=== PATIENT | female | born 1950 | race Caucasian/White ===

== ENCOUNTER 2017-02-27 18:17 | Inpatient (IN) | payer SELFPAY ==
[2017-02-27] MEDS ORDERED: Lidocaine 2% w Epi 1:100,000 Inj IJ ONE ×2 (18:28→18:35)
[2017-02-27] MEDS ORDERED: Morphine 4 MG/ML VIAL ONE ×2 (18:30→18:57)
[2017-02-27] MEDS ORDERED: Sodium Chloride 0.9% 1,000 ML IV ONE ×2 (18:33→18:34)
[2017-02-27 18:35] LABS: BASO # 0.1 K/uL (0.0-0.2); BASO % 0.7 % (0.0-2.0); EOS # 0.6 K/uL (0.0-0.7); EOS % 4.6 % (0.0-4.0); HEMATOCRIT 39.6 % (34.0-47.0); LYMPH # 6.4 K/uL (1.0-4.3); LYMPH % 49.7 % (20.0-40.0); MEAN CORPUSCULAR HEMOGLOBIN 26.7 pg (27.0-31.0); MEAN CORPUSCULAR HGB CONC 32.2 g/dL (33.0-37.0); MEAN PLATELET VOLUME 10.8 fL (7.2-11.7); MONO % 7.6 % (0.0-10.0); NRBC % 0.1 % (0.0-2.0); RED CELL DISTRIBUTION WIDTH 14.7 % (11.5-14.5); WHITE BLOOD COUNT 12.9 K/uL (4.8-10.8)
[2017-02-27 18:42] LABS: INR 0.9
[2017-02-27 18:44] LABS: ALKALINE PHOSPHATASE 89 U/L (38-126); ALT/SGPT 35 U/L (9-52); AST/SGOT 27 U/L (14-36); BILIRUBIN,TOTAL 0.3 mg/dL (0.2-1.3); BLOOD UREA NITROGEN 11 mg/dL (7-17); CALCIUM 8.8 mg/dl (8.6-10.4); CARBON DIOXIDE 23 mmol/L (22-30); CHLORIDE 101 mmol/L (98-107); GFR AFRICAN-AMERICAN > 60; GLUCOSE,RANDOM 95 mg/dL (65-105); POTASSIUM 3.3 mmol/L (3.6-5.2); SODIUM 136 mmol/L (132-148); TOTAL PROTEIN 8.9 g/dL (6.3-8.3)
[2017-02-27 18:54] LABS: ALB/GLOB RATIO 0.9 (1.0-2.1)
[2017-02-27] MEDS ORDERED: Sodium Chloride 0.9% 1,000 ML ONE (19:36)
--- NOTE | 2017-02-27 20:31 | C.PDOC ---
History Of Present Illness 66-year-old female with a pmhx of hypertension, presents to the ED after falling down approximately 10 steps. As per family at bedside, patient tripped on a rug and struck head. No loss of consciousness. Upon arrival patient with profuse bleeding from scalp hematoma. Hemostasis was achieved over 90 minutes. No other complaints. Not on any blood thinners. PMD: [facility] - [facility] Time Seen by Provider: 02/27/17 18:18 Chief Complaint (Nursing): Trauma History Per: Family History/Exam Limitations: no limitations Injury Occurred (Timing): Just Before Arrival - Fall Fall:Prior To Injury: Tripped Past Medical History Reviewed: Historical Data, Nursing Documentation, Vital Signs Vital Signs: Last Vital Signs Temp 98.3 F 03/01/17 08:00 Pulse 68 03/01/17 08:00 Resp 20 03/01/17 08:00 BP 138/66 03/01/17 08:00 Pulse Ox 99 03/01/17 08:00 - Medical History PMH: HTN Surgical History: No Surg Hx Family History: States: No Known Family Hx - Social History Hx Alcohol Use: No Hx Substance Use: No - Immunization History Hx Tetanus Toxoid Vaccination: No Hx Influenza Vaccination: No Hx Pneumococcal Vaccination: No Review Of Systems Except As Marked, All Systems Reviewed And Found Negative. Constitutional: Positive for: Other (Fall, head injury) Skin: Positive for: Other (Scalp hematoma, with active bleeding) Neurological: Negative for: Other (LOC) Physical Exam - Physical Exam Skin: Normal Color, Warm, Dry Head: Normacephalic, Laceration (5 cm laceration across forehead, with active bleeding upon arrival) ED Course And Treatment - Laboratory Results Result Diagrams: 02/28/17 01:15 02/28/17 06:24 O2 Sat by Pulse Oximetry: 94 - CT Scan/US CT Head Other Rad Studies (CT/US): Read By Radiologist, Radiology Report Reviewed CT/US Interpretation: FINDINGS: Brain: Concern for extra-axial hemorrhage along the falx. Atrophy. Bilateral white matter hypoattenuation most consistent with chronic ischemic. small vessel changes. Evaluation limited by motion artifact despite multiple. attempts to obtain images. No edema. Ventricles: No hydrocephalus. Bones: Skull appears intact. Soft tissues: Extensive scalp injury, predominantly right frontal. Correlate. clinically. Sinuses: No acute sinusitis. Mastoid air cells: No mastoid effusion. . IMPRESSION: Concern for extra-axial hemorrhage along the falx. Evaluation limited by motion artifact despite multiple attempts to obtain. images. Followup repeat imaging recommended. Extensive scalp injury, predominantly right frontal. Correlate clinically. CT Cervical Spine Other Rad Studies (CT/US): Read By Radiologist, Radiology Report Reviewed CT/US Interpretation: FINDINGS: Vertebrae: No acute fracture. Discs/spinal canal/neural foramina: Degenerative changes. No severe spinal. canal stenosis. Soft tissues: Left carotid calcification. Lung apices: No acute abnormality as visualized. Evaluation limited by motion artifact. . IMPRESSION: Evaluation limited by motion artifact. No evidence of acute fracture. Medical Decision Making Medical Decision Making: pt with initial large laceration to frontal scalp. with perfuse bleeding. bleeding vessels found and sutured. wound packed with surgicel and snow. pressure dressing applied with hemostatus obtained over 90 min Time: 18:22 Initial Plan: * Hemostasis achieved within 90 min * Blood type and screen * CMP * CBC * PTT * Prothrombin time * CT Head w/o contrast Time: 18:33 * Morphine 4 mg IV x2 * Sodium chloride 1000 ml at 1000 mls/hr * Zofran 4 mg IV Time: 20:02 * Tdap vaccine 0.5 ml IM * Cefazolin 1000 mg IVPB * Chest x-ray * CT Cervical Spine w/o contrast * X-Ray Pelvis 1 view Time: 20:22 * CT Chest/Abdomen/Pelvis w/ IV contrast ekg nsr [address] t wve change no previous. pt accepted to icu iwth intracanial bleed. dr quintana recommends repeat head ct am. Disposition - Disposition Disposition: HOSPITALIZED Disposition Time: 01:30 Condition: CRITICAL - Clinical Impression Clinical Impression: Intracranial bleed Critical Care Time - Critical Care Note Total Time (in mins): 120 Documented critical care: time excludes all time spent performing seperately billable procedures. - Scribe Statement The provider has reviewed the documentation as recorded by the Scribe Meche Yates All medical record entries made by the Scribe were at my direction and personally dictated by me. I have reviewed the chart and agree that the record accurately reflects my personal performance of the history, physical exam, medical decision making, and the department course for this patient. I have also personally directed, reviewed, and agree with the discharge instructions and disposition.
[2017-02-27] MEDS ORDERED: Iodixanol 320 MG/ML 100 ML BOTTLE IV ONE (20:47)
[2017-02-27] MEDS ORDERED: ceFAZolin 1 gm FROZEN Premix 1 GM/50 ML ML IVPB ONE (21:18)
--- NOTE | 2017-02-27 21:20 | CT ---
EXAM: CT Head Without Intravenous Contrast CLINICAL HISTORY: 66 years old, female; Injury or trauma; Fall; Initial encounter; Abrasion and bleeding / hemorrhage; Forehead and head, generalized TECHNIQUE: Axial computed tomography images of the head/brain without intravenous contrast. All CT scans at this facility use one or more dose reduction techniques, viz.: automated exposure control; ma/kV adjustment per patient size (including targeted exams where dose is matched to indication; i.e. head); or iterative reconstruction technique. Coronal and sagittal reformatted images were created and reviewed. COMPARISON: No relevant prior studies available. FINDINGS: Brain: Concern for extra-axial hemorrhage along the falx. Atrophy. Bilateral white matter hypoattenuation most consistent with chronic ischemic small vessel changes. Evaluation limited by motion artifact despite multiple attempts to obtain images. No edema. Ventricles: No hydrocephalus. Bones: Skull appears intact. Soft tissues: Extensive scalp injury, predominantly right frontal. Correlate clinically. Sinuses: No acute sinusitis. Mastoid air cells: No mastoid effusion. IMPRESSION: Concern for extra-axial hemorrhage along the falx. Evaluation limited by motion artifact despite multiple attempts to obtain images. Followup repeat imaging recommended. Extensive scalp injury, predominantly right frontal. Correlate clinically.
--- NOTE | 2017-02-27 21:23 | CT ---
EXAM: CT Cervical Spine Without Intravenous Contrast CLINICAL HISTORY: 66 years old, female; Injury or trauma; Fall; Initial encounter; Abrasion TECHNIQUE: Axial computed tomography images of the cervical spine without intravenous contrast. All CT scans at this facility use one or more dose reduction techniques, viz.: automated exposure control; ma/kV adjustment per patient size (including targeted exams where dose is matched to indication; i.e. head); or iterative reconstruction technique. Coronal and sagittal reformatted images were created and reviewed. COMPARISON: No relevant prior studies available. FINDINGS: Vertebrae: No acute fracture. Discs/spinal canal/neural foramina: Degenerative changes. No severe spinal canal stenosis. Soft tissues: Left carotid calcification. Lung apices: No acute abnormality as visualized. Evaluation limited by motion artifact. IMPRESSION: Evaluation limited by motion artifact. No evidence of acute fracture.
--- NOTE | 2017-02-27 21:38 | CT ---
EXAM: CT Abdomen and Pelvis With Intravenous Contrast CLINICAL HISTORY: 66 years old, female; Injury or trauma; Fall; Initial encounter; Abrasion TECHNIQUE: Axial computed tomography images of the abdomen and pelvis with intravenous contrast. All CT scans at this facility use one or more dose reduction techniques, viz.: automated exposure control; ma/kV adjustment per patient size (including targeted exams where dose is matched to indication; i.e. head); or iterative reconstruction technique. Coronal and sagittal reformatted images were created and reviewed. CONTRAST: 100 mL of visipaque 320 administered intravenously. COMPARISON: No relevant prior studies available. FINDINGS: Lower thorax: No acute findings. ABDOMEN: Liver: 5 cm left hepatic cyst. Gallbladder and bile ducts: No acute abnormality as visualized. No calcified stones. No ductal dilation. Pancreas: No acute abnormality as visualized. Spleen: No splenomegaly. Adrenals: No acute abnormality as visualized. Kidneys and ureters: Symmetric enhancement. No hydronephrosis. Bilateral hypoattenuating lesions, the largest lesions bilaterally measure approximately 1.7 cm and represents cysts. Some lesions cannot clearly be characterized on this study due to size, artifact and phase of imaging. Stomach and bowel: Minimal hiatal hernia. The stomach is collapsed, limiting its evaluation. No evidence of small bowel obstruction. Colonic diverticula. Appendix: Appendix not clearly identified. PELVIS: Bladder: No acute abnormality as visualized. No mass. Reproductive: 3.3 cm cystic lesion in the right adnexa. Further evaluation with dedicated ultrasound is recommended. ABDOMEN and PELVIS: Intraperitoneal space: No free air. No significant fluid collection. Bones: No acute fracture. Vasculature: Atherosclerosis. Lymph nodes: No enlarged lymph nodes. IMPRESSION: No CT evidence of acute traumatic injury. 3.3 cm cystic lesion in the right adnexa. Further evaluation with dedicated ultrasound is recommended. Please see additional details/findings as above. Some of the above findings may warrant followup evaluation. EXAM: CT Chest With Intravenous Contrast CLINICAL HISTORY: 66 years old, female; Injury or trauma; Fall; Initial encounter; Abrasion TECHNIQUE: Axial computed tomography images of the chest with intravenous contrast. All CT scans at this facility use one or more dose reduction techniques, viz.: automated exposure control; ma/kV adjustment per patient size (including targeted exams where dose is matched to indication; i.e. head); or iterative reconstruction technique. Coronal and sagittal reformatted images were created and reviewed. CONTRAST: 100 mL of visipaque 320 administered intravenously. COMPARISON: No relevant prior studies available. FINDINGS: Lungs: Limited evaluation due to artifact. No acute abnormality as visualized. No mass. No consolidation. Pleural space: No pneumothorax. No significant effusion. Heart: Cardiomegaly. No significant pericardial effusion. Bones: No acute abnormality as visualized. Degenerative changes. Vasculature: Slight prominence of the main pulmonary artery. At the level the main pulmonary artery, the ascending aorta measures 3.8 cm, slightly prominent, and the descending aorta measures 2.5 cm. Lymph nodes: Shotty nodes. IMPRESSION: No evidence of acute traumatic injury. Cardiomegaly. Please see additional details/findings as above.
[2017-02-27] MEDS ORDERED: ceFAZolin IV 1 gm in Dextrose 1 GM/50 ML BAG IVPB ONE (22:00)
--- NOTE | 2017-02-27 22:30 | CP.PCM.HP ---
<Beverly NoyolaLita - Last Filed: 02/28/17 02:31> History of Present Illness - History of Present Illness History of Present Illness: CC: Bleeding right head wound Patient is a 66 year old F with pmhx of HTN who presents today s/p fall. Patient did not turn the light on in the house and fell while walking down the stairs. Patient has no problems with walking. History is obtained mostly from granddaughter at bedside as patient only speaks Ramírez. Patient was not feeling dizzy or lightheaded at the time of the fall. Patient does not think she lost consciousness. Family heard her fall, but no one witnessed the event. Family helped her up from the fall and brought her immediately to the emergency room. Patient was bleeding from right forehead and took about 1.5 hours to achieve hemostasis in the ED. Currently patient complains of 7/10 head pain. Patient had episodes of nausea and vomiting in the ED, but no longer feels nauseous. Patient denies blurry vision, shortness of breath, chest pain, abdominal pain, diarrhea, constipation. PMHx: HTN Psurg: none Psocial: denies alcohol, tobacco, drugs. Lives with son and daughter in law and grandchildren. Home medications: something for blood pressure (documented in EMR as amlodipine 5mg daily and lopressor 50 mg daily)- only takes when blood pressure is high Allergies: NKDA Present on Admission - Present on Admission Any Indicators Present on Admission: No History of DVT/PE: No History of Uncontrolled Diabetes: No Urinary Catheter: No Decubitus Ulcer Present: No Review of Systems - Constitutional Constitutional: absent: Anorexia, Chills - EENT Eyes: absent: Blurred Vision, Change in Vision, Diplopia - Cardiovascular Cardiovascular: absent: Chest Pain, Chest Pain at Rest, Dyspnea, Irregular Heart Rhythm, Palpitations - Respiratory Respiratory: absent: Cough, Dyspnea, Wheezing, Stridor, Chest Congestion - Gastrointestinal Gastrointestinal: Nausea, Vomiting. absent: Abdominal Pain, Constipation, Diarrhea - Genitourinary Genitourinary: absent: Difficulty Urinating - Musculoskeletal Musculoskeletal: absent: Numbness, Tingling - Integumentary Integumentary: Bleeding Lesions - Neurological Neurological: Headaches. absent: Confusion, Dizziness, Numbness, Focal Weakness - Psychiatric Psychiatric: absent: Confusion Past Patient History - Past Social History Smoking Status: Never Smoked - CARDIAC Hx Hypertension: Yes - PSYCHIATRIC Hx Substance Use: No - SURGICAL HISTORY Hx Surgeries: No Meds Allergies/Adverse Reactions: Allergies Allergy/AdvReac Type Severity Reaction Status Date / Time No Known Allergies Allergy Verified 02/27/17 18:21 Physical Exam - Constitutional Appears: Non-toxic, No Acute Distress - Head Exam Head Exam: absent: ATRAUMATIC (right scalp wound in c/d/i dressing ) - Eye Exam Eye Exam: EOMI, Normal appearance Pupil Exam: PERRL - ENT Exam ENT Exam: Mucous Membranes Moist - Respiratory Exam Respiratory Exam: Clear to Auscultation Bilateral, NORMAL BREATHING PATTERN. absent: Rales, Rhonchi, Wheezes, Respiratory Distress, Stridor - Cardiovascular Exam Cardiovascular Exam: REGULAR RHYTHM, RRR. absent: +S1, +S2 - GI/Abdominal Exam GI & Abdominal Exam: Normal Bowel Sounds, Soft. absent: Tenderness - Extremities Exam Extremities exam: Positive for: pedal edema Additional comments: right LE ecchymosis - Neurological Exam Neurological exam: Alert, Oriented x3 - Psychiatric Exam Psychiatric exam: Normal Affect, Normal Mood - Skin Skin Exam: Normal Color, Warm Additional comments: right forehead wound Results - Vital Signs Recent Vital Signs: Last Vital Signs Temp Pulse 64 02/27/17 22:12 Resp 20 02/27/17 22:12 BP 184/76 H 02/27/17 22:12 Pulse Ox 99 02/27/17 22:12 - Labs Result Diagrams: 02/28/17 01:15 02/27/17 18:28 Labs: Laboratory Results - last 24 hr 02/27/17 02/27/17 02/27/17 18:28 18:28 18:28 WBC 12.9 H RBC 4.77 Hgb 12.8 Hct 39.6 MCV 83.0 MCH 26.7 L MCHC 32.2 L RDW 14.7 H Plt Count 232 MPV 10.8 Neut % (Auto) 37.4 L Lymph % (Auto) 49.7 H [place] % (Auto) 7.6 Eos % (Auto) 4.6 H Baso % (Auto) 0.7 Neut # 4.8 Lymph # 6.4 H [place] # 1.0 H Eos # 0.6 Baso # 0.1 PT 10.4 INR 0.9 APTT 27 Sodium 136 Potassium 3.3 L Chloride 101 Carbon Dioxide 23 Anion Gap 15 BUN 11 Creatinine 0.6 L Est GFR ( Amer) > 60 Est GFR (Non-Af Amer) > 60 POC Glucose (mg/dL) Random Glucose 95 Calcium 8.8 Total Bilirubin 0.3 AST 27 ALT 35 Alkaline Phosphatase 89 Total Protein 8.9 H Albumin 4.2 Globulin 4.6 H Albumin/Globulin Ratio 0.9 L Blood Type Antibody Screen 02/27/17 02/27/17 18:28 19:01 WBC RBC Hgb Hct MCV MCH MCHC RDW Plt Count MPV Neut % (Auto) Lymph % (Auto) [place] % (Auto) Eos % (Auto) Baso % (Auto) Neut # Lymph # [place] # Eos # Baso # PT INR APTT Sodium Potassium Chloride Carbon Dioxide Anion Gap BUN Creatinine Est GFR ( Amer) Est GFR (Non-Af Amer) POC Glucose (mg/dL) 105 Random Glucose Calcium Total Bilirubin AST ALT Alkaline Phosphatase Total Protein Albumin Globulin Albumin/Globulin Ratio Blood Type O POSITIVE Antibody Screen Negative Assessment & Plan - Assessment and Plan (Free Text) Assessment: Head laceration, s/p fall Head CT: concern for extra-axial hemorrhage along the falx, evaluation limited by motion artifact. Extensive scalp injury Repeat Head CT: again evidence of extra axial hemorrhage along the falx, appearance unchanged. Extensive scalp injury, predominantly right frontal hematoma and laceration. Cervical Spine CT: no evidence of acute fracture Chest/ abdomen/ pelvis CT: no evidence of acute traumatic injury. cardiomegaly. Doxycycline 100 mg po BID Tetanus given monitor CBC H/H on admission : 12.8/39.6 f/u pelvis xray, chest xray Neuro checks q4h admitted to ICU for close monitoring HTN continue to monitor will start medication if needed Hypokalemia K+ 3.3, KCl 20 meq given Prophylaxis GI: Protonix 40 mg po daily DVT: SCDs, chemical prophylaxis contraindicated due to head wound <Jaden Rivas P - Last Filed: 02/28/17 06:53> Results - Vital Signs Recent Vital Signs: Last Vital Signs Temp 97.4 F L 02/28/17 04:00 Pulse 64 02/28/17 05:00 Resp 14 02/28/17 05:00 BP 121/59 L 02/28/17 04:44 Pulse Ox 100 02/28/17 05:00 - Labs Result Diagrams: 02/28/17 01:15 02/28/17 06:24 Labs: Laboratory Results - last 24 hr 02/27/17 02/27/17 02/27/17 18:28 18:28 18:28 WBC 12.9 H RBC 4.77 Hgb 12.8 Hct 39.6 MCV 83.0 MCH 26.7 L MCHC 32.2 L RDW 14.7 H Plt Count 232 MPV 10.8 Neut % (Auto) 37.4 L Lymph % (Auto) 49.7 H [place] % (Auto) 7.6 Eos % (Auto) 4.6 H Baso % (Auto) 0.7 Neut # 4.8 Lymph # 6.4 H [place] # 1.0 H Eos # 0.6 Baso # 0.1 Neutrophils % (Manual) Lymphocytes % (Manual) Monocytes % (Manual) Platelet Estimate RBC Morphology PT 10.4 INR 0.9 APTT 27 Sodium 136 Potassium 3.3 L Chloride 101 Carbon Dioxide 23 Anion Gap 15 BUN 11 Creatinine 0.6 L Est GFR ( Amer) > 60 Est GFR (Non-Af Amer) > 60 POC Glucose (mg/dL) Random Glucose 95 Calcium 8.8 Phosphorus Magnesium Total Bilirubin 0.3 AST 27 ALT 35 Alkaline Phosphatase 89 Total Protein 8.9 H Albumin 4.2 Globulin 4.6 H Albumin/Globulin Ratio 0.9 L Blood Type Antibody Screen 02/27/17 02/27/17 02/28/17 18:28 19:01 01:15 WBC 17.3 H RBC 4.43 Hgb 11.9 Hct 37.1 MCV 83.8 MCH 26.8 L MCHC 32.0 L RDW 14.5 Plt Count 206 MPV 11.1 Neut % (Auto) 88.2 H Lymph % (Auto) 6.8 L [place] % (Auto) 4.6 Eos % (Auto) 0.1 Baso % (Auto) 0.3 Neut # 15.2 H Lymph # 1.2 [place] # 0.8 Eos # 0.0 Baso # 0.0 Neutrophils % (Manual) 90 H Lymphocytes % (Manual) 7 L Monocytes % (Manual) 3 Platelet Estimate Normal RBC Morphology Normal PT INR APTT Sodium Potassium Chloride Carbon Dioxide Anion Gap BUN Creatinine Est GFR ( Amer) Est GFR (Non-Af Amer) POC Glucose (mg/dL) 105 Random Glucose Calcium Phosphorus Magnesium Total Bilirubin AST ALT Alkaline Phosphatase Total Protein Albumin Globulin Albumin/Globulin Ratio Blood Type O POSITIVE Antibody Screen Negative 02/28/17 06:24 WBC RBC Hgb Hct MCV MCH MCHC RDW Plt Count MPV Neut % (Auto) Lymph % (Auto) [place] % (Auto) Eos % (Auto) Baso % (Auto) Neut # Lymph # [place] # Eos # Baso # Neutrophils % (Manual) Lymphocytes % (Manual) Monocytes % (Manual) Platelet Estimate RBC Morphology PT INR APTT Sodium 134 Potassium 4.2 Chloride 100 Carbon Dioxide 22 Anion Gap 17 BUN 9 Creatinine 0.5 L Est GFR ( Amer) > 60 Est GFR (Non-Af Amer) > 60 POC Glucose (mg/dL) Random Glucose 122 H Calcium 8.0 L Phosphorus 3.8 Magnesium 1.6 Total Bilirubin 0.8 AST 32 ALT 29 Alkaline Phosphatase 78 Total Protein 7.1 Albumin 3.9 Globulin 3.2 Albumin/Globulin Ratio 1.2 Blood Type Antibody Screen Attending/Attestation - Attestation I have personally seen and examined this patient.: Yes I have fully participated in the care of the patient.: Yes I have reviewed all pertinent clinical information: Yes Notes (Text): Assessment * Fall with right side scalp laceration, hematoma s/p control of bleeding with internal absorbable sutures, gel foam, external sutures, with mention of extra- axial hematoma around the fax, difficult to appreciate by me, no neurologic signs or symptoms. * H/o htn Plan Observe in ICU Empiric abx, tetnus Repeat CT, neuro-surgery consult See orders for detail.
--- NOTE | 2017-02-27 22:42 | CP.PCM.CON ---
History of Present Illness - History of Present Illness History of Present Illness: 66-year-old female with a PMH of hypertension, presents to the ED after falling down approximately 10 steps. As per family at bedside, patient was going to open the door in the dark,tripped on a rug and struck head. No loss of consciousness. Upon arrival patient with profuse bleeding from scalp hematoma. Hemostasis was achieved over 90 minutes. No other complaints. Not on any blood thinners.She takes BP meds as needed. Patient c/o nausea,vomitted several times in ER and c/o headache at site of laceration.She received 4 mg Morphine in ER CT head -Concern for extra axial hemorrhage along falx. Evaluation limited by motion artifact.Extensive scalp injury CT Cervical Spine-No evidence of acute fracture.Evaluation limited by motion artifact CT Chest-Cardiomegaly.No evidence of acute Traumatic injury.Slight prominance of main Pulmonary artery. at the level of the main Ascending aorta 3.8cm ,slightly prominant and the descending aorta measures 2.5cm.Shotty LN's CT Abdomen and Pelvis-5cm left hepatic cyst.Bilateral hypo-attenuating lesions of kidneys. 3.3 cystic lesion right adenexa History from granddaughter who translated Review of Systems - Review of Systems Systems not reviewed;Unavailable: Language Barrier - Constitutional Constitutional: Headache. absent: Anorexia, Fever, Frequent Falls, Lethargy, Weakness - EENT Eyes: Pain. absent: Blurred Vision, Loss of Vision Ears: absent: Decreased Hearing, Ear Pain, Dizziness Nose/Mouth/Throat: absent: Nasal Congestion, Hoarsness, Sore Throat, Neck Pain, Neck Mass - Cardiovascular Cardiovascular: absent: Chest Pain, Claudication, Dyspnea, Edema, Lightheadedness, Rapid Heart Rate - Respiratory Respiratory: absent: Cough, Dyspnea - Gastrointestinal Gastrointestinal: Nausea, Vomiting. absent: Abdominal Pain, Change in Bowel Habits, Diarrhea - Genitourinary Genitourinary: absent: Difficulty Urinating, Dysuria - Musculoskeletal Musculoskeletal: absent: Back Pain, Muscle Weakness - Integumentary Integumentary: absent: Rash, Skin Ulcer, Sores - Neurological Neurological: Headaches. absent: Dizziness, Loss of Vision, Syncope - Psychiatric Psychiatric: absent: Confusion - Endocrine Endocrine: absent: Fatigue, Palpitations - Hematologic/Lymphatic Hematologic: absent: Easy Bleeding Past Patient History - Tetanus Immunizations Tetanus Immunization: Unknown - Past Medical History & Family History Past Medical History?: Yes - Past Social History Smoking Status: Never Smoked Alcohol: None Drugs: Denies Home Situation {Lives}: With Family - CARDIAC Hx Hypertension: Yes - PSYCHIATRIC Hx Substance Use: No - SURGICAL HISTORY Hx Surgeries: No Meds Allergies/Adverse Reactions: Allergies Allergy/AdvReac Type Severity Reaction Status Date / Time No Known Allergies Allergy Verified 02/27/17 18:21 Physical Exam - Constitutional Appears: No Acute Distress - Head Exam Head Exam: NORMOCEPHALIC Additional comments: laceration right scalp,no active bleeding - Eye Exam Eye Exam: EOMI, Normal appearance, PERRL. absent: Conjunctival injection, Scleral icterus Pupil Exam: NORMAL ACCOMODATION Additional comments: ecchymoses on lateral aspect of right eye - ENT Exam ENT Exam: Mucous Membranes Moist, Normal Exam - Neck Exam Neck exam: Positive for: Normal Inspection. Negative for: Meningismus, Tenderness - Respiratory Exam Respiratory Exam: Clear to Auscultation Bilateral, NORMAL BREATHING PATTERN. absent: Respiratory Distress - Cardiovascular Exam Cardiovascular Exam: REGULAR RHYTHM - GI/Abdominal Exam GI & Abdominal Exam: Normal Bowel Sounds, Soft. absent: Tenderness - Extremities Exam Extremities exam: Positive for: pedal pulses present. Negative for: calf tenderness, pedal edema Additional comments: right knee and upper leg with ecchymoses - Back Exam Back exam: NORMAL INSPECTION. absent: CVA tenderness (R), paraspinal tenderness , rash noted - Neurological Exam Neurological exam: Alert, Oriented x3 - Skin Skin Exam: Normal Color, Warm Results - Vital Signs Recent Vital Signs: Last Vital Signs Temp Pulse 64 02/27/17 22:12 Resp 20 02/27/17 22:12 BP 184/76 H 02/27/17 22:12 Pulse Ox 99 02/27/17 22:12 - Labs Result Diagrams: 02/27/17 18:28 02/27/17 18:28 Labs: Laboratory Results - last 24 hr 02/27/17 02/27/17 02/27/17 18:28 18:28 18:28 WBC 12.9 H RBC 4.77 Hgb 12.8 Hct 39.6 MCV 83.0 MCH 26.7 L MCHC 32.2 L RDW 14.7 H Plt Count 232 MPV 10.8 Neut % (Auto) 37.4 L Lymph % (Auto) 49.7 H [place] % (Auto) 7.6 Eos % (Auto) 4.6 H Baso % (Auto) 0.7 Neut # 4.8 Lymph # 6.4 H [place] # 1.0 H Eos # 0.6 Baso # 0.1 PT 10.4 INR 0.9 APTT 27 Sodium 136 Potassium 3.3 L Chloride 101 Carbon Dioxide 23 Anion Gap 15 BUN 11 Creatinine 0.6 L Est GFR ( Amer) > 60 Est GFR (Non-Af Amer) > 60 POC Glucose (mg/dL) Random Glucose 95 Calcium 8.8 Total Bilirubin 0.3 AST 27 ALT 35 Alkaline Phosphatase 89 Total Protein 8.9 H Albumin 4.2 Globulin 4.6 H Albumin/Globulin Ratio 0.9 L Blood Type Antibody Screen 02/27/17 02/27/17 18:28 19:01 WBC RBC Hgb Hct MCV MCH MCHC RDW Plt Count MPV Neut % (Auto) Lymph % (Auto) [place] % (Auto) Eos % (Auto) Baso % (Auto) Neut # Lymph # [place] # Eos # Baso # PT INR APTT Sodium Potassium Chloride Carbon Dioxide Anion Gap BUN Creatinine Est GFR ( Amer) Est GFR (Non-Af Amer) POC Glucose (mg/dL) 105 Random Glucose Calcium Total Bilirubin AST ALT Alkaline Phosphatase Total Protein Albumin Globulin Albumin/Globulin Ratio Blood Type O POSITIVE Antibody Screen Negative - EKG Data EKG comments: pending - Imaging and Cardiology CT scan - chest Status: Report reviewed by me (Cardiomegaly.No evidence of acute Traumatic injury.Slight prominance of main Pulmonary artery. at the level of the main Ascending aorta 3.8cm ,slightly prominant and the descending aorta measures 2.5cm.Shotty LN's) CT scan - head Status: Report reviewed by me (Concern for extra axial hemorrhage along falx. Evaluation limited by motion artifact.Extensive scalp injury) Assessment & Plan - Assessment and Plan (Free Text) Assessment: 1.s/p fall and Scalp laceration/hematoma 2.Abnormal CT scan head- Concern for extra axial hemorrhage along falx. Evaluation limited by motion artifact.Extensive scalp injury monitor in ICU. ER physician spoke to Neurosurgeon.Reeat CT scan in am 3.HTN-continue medscon 4.Hypokalemia-replace potassium 5.Abnormal CT abdomen and chest-workup when patient is stable GI and DVT prophylaxis
[2017-02-27] MEDS ORDERED: Dextrose 5%/0.9% NS 1,000 ML IV ONE (22:59)
--- NOTE | 2017-02-27 23:47 | CT ---
EXAM: CT Head Without Intravenous Contrast CLINICAL HISTORY: 66 years old, female; Injury or trauma; Fall; Follow-up exam; Wound, open; Consciousness not specified; Other: Rt skull; With residual foreign body; Injury date: 02/27/17; Injury details: Prior head done earlier @ 8: 10 pm; Additional info: Head injury, S/P fall TECHNIQUE: Axial computed tomography images of the head/brain without intravenous contrast. All CT scans at this facility use one or more dose reduction techniques, viz.: automated exposure control; ma/kV adjustment per patient size (including targeted exams where dose is matched to indication; i.e. head); or iterative reconstruction technique. COMPARISON: CT - HEAD W/O CONTRAST 2017-02-27 20:10 FINDINGS: Brain: Again evidence of extra-axial hemorrhage along the falx, appearance unchanged. Atrophy. Bilateral white matter hypoattenuation most consistent with chronic ischemic small vessel changes. No edema. Ventricles: No hydrocephalus. Bones: Skull is intact. Soft tissues: Extensive scalp injury, predominantly right frontal including hematoma and laceration. Correlate clinically. Sinuses: No acute sinusitis. Mastoid air cells: No mastoid effusion. IMPRESSION: Again evidence of extra-axial hemorrhage along the falx, appearance unchanged. Extensive scalp injury, predominantly right frontal including hematoma and laceration. Correlate clinically.
[2017-02-28 01:17] LABS: BASO % 0.3 % (0.0-2.0); EOS % 0.1 % (0.0-4.0); HEMATOCRIT 37.1 % (34.0-47.0); LYMPH # 1.2 K/uL (1.0-4.3); LYMPH % 6.8 % (20.0-40.0); MEAN CELL VOLUME 83.8 fL (81.0-99.0); MEAN CORPUSCULAR HEMOGLOBIN 26.8 pg (27.0-31.0); MEAN PLATELET VOLUME 11.1 fL (7.2-11.7); MONO # 0.8 K/uL (0.0-0.8); MONO % 4.6 % (0.0-10.0); PLATELET COUNT 206 K/uL (130-400); RED CELL DISTRIBUTION WIDTH 14.5 % (11.5-14.5); WHITE BLOOD COUNT 17.3 K/uL (4.8-10.8)
[2017-02-28 02:00] LABS: NEUTROPHIL 90 % (50-75); TOTAL CELLS COUNTED 100
[2017-02-28 06:42] LABS: ALB/GLOB RATIO 1.2 (1.0-2.1); ALKALINE PHOSPHATASE 78 U/L (38-126); ALT/SGPT 29 U/L (9-52); AST/SGOT 32 U/L (14-36); BILIRUBIN,TOTAL 0.8 mg/dL (0.2-1.3); BLOOD UREA NITROGEN 9 mg/dL (7-17); CARBON DIOXIDE 22 mmol/L (22-30); CHLORIDE 100 mmol/L (98-107); GFR AFRICAN-AMERICAN > 60; GLUCOSE,RANDOM 122 mg/dL (65-105); MAGNESIUM 1.6 mg/dL (1.6-2.3); PHOSPHOROUS 3.8 mg/dL (2.5-4.5); POTASSIUM 4.2 mmol/L (3.6-5.2); SODIUM 134 mmol/L (132-148); TOTAL PROTEIN 7.1 g/dL (6.3-8.3)
--- NOTE | 2017-02-28 08:43 | CP.PCM.PN ---
Subjective - Date & Time of Evaluation Date of Evaluation: 02/28/17 Time of Evaluation: 08:42 - Subjective Subjective: small stable falcine extraaxial collection seen on CT no surgical intervention indicated if any changes in MS please call otherwise cleared from NS point of view Objective - Vital Signs/Intake and Output Vital Signs (last 24 hours): Temp Pulse Resp BP Pulse Ox 97.4 F L 64 14 121/59 L 100 02/28/17 04:00 02/28/17 05:00 02/28/17 05:00 02/28/17 04:44 02/28/17 05:00 Intake and Output: 02/28/17 02/28/17 06:59 18:59 Intake Total 600 60 Output Total 650 0 Balance -50 60 - Medications Medications: Current Medications Acetaminophen (Tylenol 325mg Tab) 650 mg PO Q6 PRN PRN Reason: Pain, moderate (4-7) Doxycycline Hyclate (Doryx) 100 mg PO Q12H [facility] Last Admin: 02/27/17 23:40 Dose: 100 mg Dextrose/Sodium Chloride (Dextrose 5%/0.9% Ns 1000 Ml) 1,000 mls @ 60 mls/hr IV .[id number] ONE Stop: 02/28/17 15:38 Last Admin: 02/27/17 23:39 Dose: 60 mls/hr Ondansetron HCl (Zofran Inj) 4 mg IVP Q6H [facility] Last Admin: 02/28/17 03:41 Dose: 4 mg Pantoprazole Sodium (Protonix Ec Tab) 40 mg PO DAILY [facility] - Labs Labs: 02/28/17 01:15 02/28/17 06:24 PT 10.4 SECONDS (9.7-12.2) 02/27/17 18:28 INR 0.9 02/27/17 18:28 APTT 27 SECONDS (21-34) 02/27/17 18:28
--- NOTE | 2017-02-28 08:55 | RAD ---
PROCEDURE: Radiographs of the pelvis. HISTORY: trauma COMPARISON: None. FINDINGS: BONES: Pelvic Bones: Unremarkable. Hips: Grossly unremarkable. JOINTS: Sacroiliac Joints: Unremarkable. Pubic Symphysis: Unremarkable. OTHER FINDINGS: None. IMPRESSION: Unremarkable radiographs of the pelvis.
--- NOTE | 2017-02-28 08:59 | RAD ---
Chest x-ray single frontal view History: Trauma. Comparison: 02/27/2017 Findings: Mild venous congestion. Right hilar prominence. Mild patchy increased markings in the right infrahilar region. Right paratracheal prominence may represent prominent vasculature. Mild cardiomegaly. Calcification at the aortic knob. Degenerative changes in the spine. Impression: Mild venous congestion. Right hilar prominence. Mild patchy increased markings in the right infrahilar region. Right paratracheal prominence may represent prominent vasculature. Mild cardiomegaly.
[2017-02-28] MEDS: Pantoprazole 40 mg EC Tab PO SCH (09:50)
--- NOTE | 2017-02-28 09:57 | CT ---
PROCEDURE: CT HEAD WITHOUT CONTRAST. HISTORY: follow up of possible extra-axial hemorrhage COMPARISON: None available. TECHNIQUE: Axial computed tomography images were obtained through the head/brain without intravenous contrast. Radiation dose: Total exam DLP = 1072.07 mGy-cm. This CT exam was performed using one or more of the following dose reduction techniques: Automated exposure control, adjustment of the mA and/or kV according to patient size, and/or use of iterative reconstruction technique. FINDINGS: HEMORRHAGE: Small amount of subdural hemorrhage along the anterior falx cerebri slightly decreased from prior examination. No extra-axial hemorrhage identified elsewhere. BRAIN: No mass effect or edema. Mild diffuse atrophy consistent with patient age. No evidence of acute infarct. . VENTRICLES: Unremarkable. No hydrocephalus. CALVARIUM: No fracture. Right frontotemporal scalp contusion/ laceration with subcutaneous emphysema as noted previously. PARANASAL SINUSES: Unremarkable as visualized. No significant inflammatory changes. MASTOID AIR CELLS: Unremarkable as visualized. No inflammatory changes. OTHER FINDINGS: None. IMPRESSION: Decreasing subdural hemorrhage along the anterior falx cerebri compared to 02/27/2017. Right frontotemporal scalp contusion/ laceration.
--- NOTE | 2017-02-28 17:54 | CP.PCM.PN ---
Subjective - Date & Time of Evaluation Date of Evaluation: 02/28/17 Time of Evaluation: 17:52 - Subjective Subjective: able to see clearly had headache today improved now Objective - Vital Signs/Intake and Output Vital Signs (last 24 hours): Temp Pulse Resp BP Pulse Ox 97.6 F 71 13 159/77 H 98 02/28/17 16:00 02/28/17 17:00 02/28/17 17:00 02/28/17 15:43 02/28/17 17:00 Intake and Output: 02/28/17 02/28/17 06:59 18:59 Intake Total 600 870 Output Total 650 350 Balance -50 520 - Medications Medications: Current Medications Acetaminophen (Tylenol 325mg Tab) 650 mg PO Q6 PRN PRN Reason: Pain, moderate (4-7) Last Admin: 02/28/17 14:01 Dose: 650 mg Doxycycline Hyclate (Doryx) 100 mg PO Q12H [facility] Last Admin: 02/28/17 12:40 Dose: 100 mg Ondansetron HCl (Zofran Inj) 4 mg IVP Q6H [facility] Last Admin: 02/28/17 17:41 Dose: 4 mg Pantoprazole Sodium (Protonix Ec Tab) 40 mg PO DAILY [facility] Last Admin: 02/28/17 09:50 Dose: 40 mg - Labs Labs: 02/28/17 01:15 02/28/17 06:24 PT 10.4 SECONDS (9.7-12.2) 02/27/17 18:28 INR 0.9 02/27/17 18:28 APTT 27 SECONDS (21-34) 02/27/17 18:28 - Constitutional Appears: Well - Head Exam Head Exam: absent: ATRAUMATIC Additional comments: traumatic wound has bandage around whole head above right eye eechymoses - Eye Exam Eye Exam: Normal appearance, PERRL Pupil Exam: NORMAL ACCOMODATION - ENT Exam ENT Exam: Mucous Membranes Moist - Respiratory Exam Respiratory Exam: Clear to Ausculation Bilateral, NORMAL BREATHING PATTERN. absent: Rales, Rhonchi, Wheezes - Cardiovascular Exam Cardiovascular Exam: +S1, +S2. absent: Murmur - GI/Abdominal Exam GI & Abdominal Exam: Soft, Normal Bowel Sounds. absent: Tenderness, Organomegaly - Neurological Exam Neurological Exam: Alert, Awake, Oriented x3 - Psychiatric Exam Psychiatric exam: Normal Affect, Normal Mood - Skin Skin Exam: Normal Color Assessment and Plan - Assessment and Plan (Free Text) Assessment: Intracranial hemorrhage post trauma accidental fall Fell down stairs at her home
--- NOTE | 2017-02-28 19:23 | CP.CCUPN ---
CCU Subjective - Physician Review Subjective (Free Text): PGY1 ICU note for Dr. Ware Patient seen and examined at bedside this morning. Patient's daughter was bedside for translation. Patient reports a mild headache but otherwise states she is feeling well. Her vision is improving. Patient has no other complaints at this time. Denies fevers, chills, nausea, vomiting, bowel changes, shortness of breathe or chest pain. CCU Objective - Vital Signs / Intake & Output Vital Signs (Last 4 hours): Vital Signs Temp Pulse Resp BP Pulse Ox 02/28/17 17:00 71 13 98 02/28/17 16:00 97.6 F 02/28/17 15:43 73 15 159/77 H 99 Intake and Output (Last 8hrs): Intake & Output 02/28/17 02/28/17 02/28/17 06:59 14:59 22:59 Intake Total 600 750 120 Output Total 650 50 300 Balance -50 700 -180 Weight 148 lb 2.41 oz Intake: Intake, IV Amount 400 270 left antecubital area 400 270 Oral 200 480 120 Output: Urine 650 50 300 Urine, Voided 650 50 300 Other: # Voids Urine, Voided 1 1 # Bowel Movements 0 0 - Physical Exam Head: Positive for: Tenderness, Ecchymosis, Other (scalp dressing c/d/i) Pupils: Positive for: PERRL Extroacular Muscles: Positive for: EOMI Nose (External): Positive for: Atraumatic Nose (Internal): Positive for: No Active Bleeding Respiratory/Chest: Positive for: Clear to Auscultation. Negative for: Respiratory Distress, Accessory Muscle Use Cardiovascular: Positive for: Regular Rate and Rhythm Abdomen: Negative for: Tenderness, Distention, Peritoneal Signs Lower Extremity: Positive for: Other (ecchymosis of R leg, consistent with fall) Neurological: Positive for: Speech Normal, Motor Func Grossly Intact Skin: Positive for: Warm, Dry Psychiatric: Positive for: Alert, Oriented x 3 - Medications Active Medications: Active Medications Generic Name Dose Route Start Last Admin Trade Name Freq PRN Reason Stop Dose Admin Acetaminophen 650 mg 02/27/17 22:43 02/28/17 14:01 Tylenol 325mg Tab PO 650 mg Q6 PRN Administration Pain, moderate (4-7) Doxycycline Hyclate 100 mg 02/28/17 00:00 02/28/17 12:40 Doryx PO 100 mg Q12H [facility] Administration Ondansetron HCl 4 mg 02/28/17 04:00 02/28/17 17:41 Zofran Inj IVP 4 mg Q6H [facility]NA Administration Pantoprazole Sodium 40 mg 02/28/17 10:00 02/28/17 09:50 Protonix Ec Tab PO 40 mg DAILY DENA Administration - Patient Studies Lab Studies: Lab Studies 02/28/17 02/28/17 Range/Units 06:24 01:15 WBC 17.3 H (4.8-10.8) K/uL RBC 4.43 (3.80-5.20) Mil/uL Hgb 11.9 (11.0-16.0) g/dL Hct 37.1 (34.0-47.0) % MCV 83.8 (81.0-99.0) fL MCH 26.8 L (27.0-31.0) pg MCHC 32.0 L (33.0-37.0) g/dL RDW 14.5 (11.5-14.5) % Plt Count 206 (130-400) K/uL MPV 11.1 (7.2-11.7) fL Neut % (Auto) 88.2 H (50.0-75.0) % Lymph % (Auto) 6.8 L (20.0-40.0) % [place] % (Auto) 4.6 (0.0-10.0) % Eos % (Auto) 0.1 (0.0-4.0) % Baso % (Auto) 0.3 (0.0-2.0) % Neut # 15.2 H (1.8-7.0) K/uL Lymph # 1.2 (1.0-4.3) K/uL [place] # 0.8 (0.0-0.8) K/uL Eos # 0.0 (0.0-0.7) K/uL Baso # 0.0 (0.0-0.2) K/uL Neutrophils % (Manual) 90 H (50-75) % Lymphocytes % (Manual) 7 L (20-40) % Monocytes % (Manual) 3 (0-10) % Platelet Estimate Normal (NORMAL) RBC Morphology Normal Sodium 134 (132-148) mmol/L Potassium 4.2 (3.6-5.2) mmol/L Chloride 100 (98-107) mmol/L Carbon Dioxide 22 (22-30) mmol/L Anion Gap 17 (10-20) BUN 9 (7-17) mg/dL Creatinine 0.5 L (0.7-1.2) mg/dL Est GFR ( Amer) > 60 Est GFR (Non-Af Amer) > 60 Random Glucose 122 H (65-105) mg/dL Calcium 8.0 L (8.6-10.4) mg/dl Phosphorus 3.8 (2.5-4.5) mg/dL Magnesium 1.6 (1.6-2.3) mg/dL Total Bilirubin 0.8 (0.2-1.3) mg/dL AST 32 (14-36) U/L ALT 29 (9-52) U/L Alkaline Phosphatase 78 (38-126) U/L Total Protein 7.1 (6.3-8.3) g/dL Albumin 3.9 (3.5-5.0) g/dL Globulin 3.2 (2.2-3.9) gm/dL Albumin/Globulin Ratio 1.2 (1.0-2.1) Laboratory Results - last 24 hr 02/28/17 02/28/17 01:15 06:24 WBC 17.3 H RBC 4.43 Hgb 11.9 Hct 37.1 MCV 83.8 MCH 26.8 L MCHC 32.0 L RDW 14.5 Plt Count 206 MPV 11.1 Neut % (Auto) 88.2 H Lymph % (Auto) 6.8 L [place] % (Auto) 4.6 Eos % (Auto) 0.1 Baso % (Auto) 0.3 Neut # 15.2 H Lymph # 1.2 [place] # 0.8 Eos # 0.0 Baso # 0.0 Neutrophils % (Manual) 90 H Lymphocytes % (Manual) 7 L Monocytes % (Manual) 3 Platelet Estimate Normal RBC Morphology Normal Sodium 134 Potassium 4.2 Chloride 100 Carbon Dioxide 22 Anion Gap 17 BUN 9 Creatinine 0.5 L Est GFR ( Amer) > 60 Est GFR (Non-Af Amer) > 60 Random Glucose 122 H Calcium 8.0 L Phosphorus 3.8 Magnesium 1.6 Total Bilirubin 0.8 AST 32 ALT 29 Alkaline Phosphatase 78 Total Protein 7.1 Albumin 3.9 Globulin 3.2 Albumin/Globulin Ratio 1.2 EKG/Cardiology Studies: Cardiology / EKG Studies 02/27/17 22:15 EKG [ELECTROCARDIOGRAM] Stat Comment: Mode Of Transportation: BED Reason For Exam: cp Review of Systems - Review of Systems All systems: reviewed and no additional remarkable complaints except (as per HPI ) Critical Care Progress Note - Nutrition Nutrition: Nutrition Category Date Time Status Heart Healthy Diet [DIET] Diets 02/27/17 Dinner Active Assessment/Plan - Assessment and Plan (Free Text) Assessment: 66 year old female with PMH of HTN presenting s/p fall with head laceration Plan: Neuro: Dr. Polanco consulted, help appreciated - no surgical intervention planned at this time Repeat Head CT (02/28/17) - Decreasing subdural hemorrhage along the anterior falx cerebri compared to 02/27/2017. Right frontotemporal scalp contusion/ laceration. Tylenol PRN for headache Patient stable and improving clinically, cleared for transfer to med-surg floor Prophylactic Care: Doxycycline 100mg PO q12 Protonix 40mg PO daily Zofran 4mg IVP q6 Transfer orders placed to med-surg floor Case discussed with Dr. Annika Graves Panda PGY1
[2017-03-01 08:49] VITALS: RESP 20; TEMP 98.3
[2017-03-01] MEDS: Pantoprazole 40 mg EC Tab PO SCH (10:24)
[2017-03-01 13:37] VITALS: O2SAT 94
[2017-03-01 13:43] VITALS: BP 147/70; PULSE 72
--- NOTE | 2017-03-01 15:15 | CP.PCM.DIS ---
Provider - Provider Date of Admission: 02/27/17 21:57 Attending physician: Jaden Rivas MD Time Spent in preparation of Discharge (in minutes): 45 Hospital Course - Lab Results Lab Results: Micro Results 02/27/17 Unknown Nose MRSA Culture (Admit) - Final MRSA NOT DETECTED Most Recent Lab Values WBC 17.3 K/uL (4.8-10.8) H 02/28/17 01:15 RBC 4.43 Mil/uL (3.80-5.20) 02/28/17 01:15 Hgb 11.9 g/dL (11.0-16.0) 02/28/17 01:15 Hct 37.1 % (34.0-47.0) 02/28/17 01:15 MCV 83.8 fL (81.0-99.0) 02/28/17 01:15 MCH 26.8 pg (27.0-31.0) L 02/28/17 01:15 MCHC 32.0 g/dL (33.0-37.0) L 02/28/17 01:15 RDW 14.5 % (11.5-14.5) 02/28/17 01:15 Plt Count 206 K/uL (130-400) 02/28/17 01:15 MPV 11.1 fL (7.2-11.7) 02/28/17 01:15 Neut % (Auto) 88.2 % (50.0-75.0) H 02/28/17 01:15 Lymph % (Auto) 6.8 % (20.0-40.0) L 02/28/17 01:15 [place] % (Auto) 4.6 % (0.0-10.0) 02/28/17 01:15 Eos % (Auto) 0.1 % (0.0-4.0) 02/28/17 01:15 Baso % (Auto) 0.3 % (0.0-2.0) 02/28/17 01:15 Neut # 15.2 K/uL (1.8-7.0) H 02/28/17 01:15 Lymph # 1.2 K/uL (1.0-4.3) 02/28/17 01:15 [place] # 0.8 K/uL (0.0-0.8) 02/28/17 01:15 Eos # 0.0 K/uL (0.0-0.7) 02/28/17 01:15 Baso # 0.0 K/uL (0.0-0.2) 02/28/17 01:15 Neutrophils % (Manual) 90 % (50-75) H 02/28/17 01:15 Lymphocytes % (Manual) 7 % (20-40) L 02/28/17 01:15 Monocytes % (Manual) 3 % (0-10) 02/28/17 01:15 Platelet Estimate Normal (NORMAL) 02/28/17 01:15 RBC Morphology Normal 02/28/17 01:15 PT 10.4 SECONDS (9.7-12.2) 02/27/17 18:28 INR 0.9 02/27/17 18:28 APTT 27 SECONDS (21-34) 02/27/17 18:28 Sodium 134 mmol/L (132-148) 02/28/17 06:24 Potassium 4.2 mmol/L (3.6-5.2) 02/28/17 06:24 Chloride 100 mmol/L (98-107) 02/28/17 06:24 Carbon Dioxide 22 mmol/L (22-30) 02/28/17 06:24 Anion Gap 17 (10-20) 02/28/17 06:24 BUN 9 mg/dL (7-17) 02/28/17 06:24 Creatinine 0.5 mg/dL (0.7-1.2) L 02/28/17 06:24 Est GFR ( Amer) > 60 02/28/17 06:24 Est GFR (Non-Af Amer) > 60 02/28/17 06:24 POC Glucose (mg/dL) 105 mg/dL (65-110) 02/27/17 19:01 Random Glucose 122 mg/dL (65-105) H 02/28/17 06:24 Calcium 8.0 mg/dl (8.6-10.4) L 02/28/17 06:24 Phosphorus 3.8 mg/dL (2.5-4.5) 02/28/17 06:24 Magnesium 1.6 mg/dL (1.6-2.3) 02/28/17 06:24 Total Bilirubin 0.8 mg/dL (0.2-1.3) 02/28/17 06:24 AST 32 U/L (14-36) 02/28/17 06:24 ALT 29 U/L (9-52) 02/28/17 06:24 Alkaline Phosphatase 78 U/L (38-126) 02/28/17 06:24 Total Protein 7.1 g/dL (6.3-8.3) 02/28/17 06:24 Albumin 3.9 g/dL (3.5-5.0) 02/28/17 06:24 Globulin 3.2 gm/dL (2.2-3.9) 02/28/17 06:24 Albumin/Globulin Ratio 1.2 (1.0-2.1) 02/28/17 06:24 Blood Type O POSITIVE 02/27/17 18:28 Antibody Screen Negative 02/27/17 18:28 - Hospital Course Hospital Course: HPI ( As per admission): Patient is a 66 year old F with pmhx of HTN who presents today s/p fall. Patient did not turn the light on in the house and fell while walking down the stairs. Patient has no problems with walking. History is obtained mostly from granddaughter at bedside as patient only speaks Ramírez. Patient was not feeling dizzy or lightheaded at the time of the fall. Patient does not think she lost consciousness. Family heard her fall, but no one witnessed the event. Family helped her up from the fall and brought her immediately to the emergency room. Patient was bleeding from right forehead and took about 1.5 hours to achieve hemostasis in the ED. Currently patient complains of 7/10 head pain. Patient had episodes of nausea and vomiting in the ED, but no longer feels nauseous. Patient denies blurry vision, shortness of breath, chest pain, abdominal pain, diarrhea, constipation. Hospital course: Patient was admit for head laceration status post fall. Patient's laceration was sutured and hemostasis was achieved; patient was transferred to the ICU for close monitoring based on head CT scan result. Neurosurgery, Dr. Martell was consulted, who recommended no surgical intervention but close monitoring. Patient was closely monitored in the ICU and had an uneventful hospital course. Patient symptoms of headache continued to improve and patient had no visual deficit. Furthermore, patient worked with physical therapy and was cleared for discharge from their perspective. Patient remained stable during the course of admission and was then discharge upon clearance by her medical team. Pertinent imaging: Head CT without contrast (02/27/2017): Concern for extra-axial hemorrhage along the falx. Extensive scalp injury, predominantly right frontal Head CT without contrast (02/27/17): evidence of extra-axial hemorrhage along the falx, appearance Head CT without contrast (02/28/17): Decreasing subdural hemorrhage along the anterior falx cerebri compared to 02/27/2017. Right frontotemporal scalp contusion/ laceration. Cervical spine CT (02/27/2017): No evidence of acute fracture Pelvis X-ray:Unremarkable radiographs of the pelvis. Chest, abdomen, pelvis CT: No evidence of acute traumatic injury. Cardiomegaly This is a brief summary of events. For a complete course, please refer to the medical records Discharge Exam - Head Exam Head Exam: ATRAUMATIC (right scalp wound in c/d/i dressing ) - Eye Exam Eye Exam: EOMI, Normal appearance - Respiratory Exam Respiratory Exam: Clear to PA & Lateral, NORMAL BREATHING PATTERN - Cardiovascular Exam Cardiovascular Exam: REGULAR RHYTHM, +S1, +S2 - GI/Abdominal Exam GI & Abdominal Exam: Normal Bowel Sounds, Soft - Extremities Exam Extremities exam: normal inspection - Neurological Exam Neurological exam: Alert, Oriented x3 - Psychiatric Exam Psychiatric exam: Normal Affect - Skin Skin Exam: Normal Color Discharge Plan - Discharge Medications Prescriptions: Doxycycline Hyclate [Doryx] 100 mg PO Q12H 14 Days #28 cap Famotidine [Pepcid] 20 mg PO DAILY 30 Days #30 tab - Follow Up Plan Condition: CRITICAL Disposition: HOME/ ROUTINE Additional Instructions: Please discharge patient home as per Dr. Gabriel Please start the following medications: 1. Doxycycline 100mg PO Q12H for 14 days 2. Pepcid 20mg PO daily ( 30 days supply) Please follow up in [facility] (formerly [facility]3] in 1 week Please resume blood pressure medications after you follow at the [facility] Please repeat a head CT scan without contrast in 2 weeks Please return to the ER with symptoms of headache, blurry vision, nausea, fever , chills, stiff neck. Please use assistance with ambulation Referrals: [facility] [Outside] Ulises Bautista MD [Staff Provider] -
== END 2017-03-01 14:05 | disposition home or self-care (01) | DRG 604 ==
LOC: C.ER 18:17 → C.9I 21:57
PROVIDERS: ADMIT Internal Medicine; ATTEND Internal Medicine
PROC: 0HQ0XZZ Repair Scalp Skin, External Approach (ICD-10-PCS; principal; 2017-02-27)
DX: S01.01XA Laceration without foreign body of scalp, initial encounter (principal); S06.5X0A Traumatic subdural hemorrhage without loss of consciousness, initial encounter; I11.9 Hypertensive heart disease without heart failure; W10.9XXA Fall (on) (from) unspecified stairs and steps, initial encounter; I51.7 Cardiomegaly; E87.6 Hypokalemia; Z79.899 Other long term (current) drug therapy

== ENCOUNTER 2017-03-28 16:08 | Observation (INO) | payer OTHER ==
--- NOTE | 2017-03-28 18:17 | C.PDOC ---
History Of Present Illness 66yo female, presents to ED with complaints of mild headache, reported to be 2/ 10. States she had a head injury 2 months ago but denies any recent trauma or fall. She also denies any dizziness, chest pain or shortness of breath. Patient states she has history of hypertension and she took her medications prior to coming to the ED. She has no other medical complaints. - HPI Time Seen by Provider: 03/28/17 17:12 Chief Complaint (Nursing): Trauma History Per: Patient History/Exam Limitations: no limitations Onset/Duration Of Symptoms: Days Additional History Per: Patient Past Medical History Reviewed: Historical Data, Nursing Documentation, Vital Signs Vital Signs: Last Vital Signs Temp 97.6 F 03/28/17 16:38 Pulse 85 03/28/17 18:31 Resp 16 03/28/17 18:31 BP 178/84 H 03/28/17 18:31 Pulse Ox 99 03/28/17 18:31 - Medical History PMH: HTN Denies: Chronic Kidney Disease Surgical History: No Surg Hx - [facility] Procedures REPAIR SCALP SKIN, EXTERNAL APPROACH (02/27/17) Family History: States: No Known Family Hx - Social History Hx Alcohol Use: No Hx Substance Use: No - Immunization History Hx Tetanus Toxoid Vaccination: No Hx Influenza Vaccination: No Hx Pneumococcal Vaccination: No Review Of Systems Except As Marked, All Systems Reviewed And Found Negative. Cardiovascular: Negative for: Chest Pain Respiratory: Negative for: Shortness of Breath Neurological: Positive for: Headache. Negative for: Dizziness Physical Exam - Physical Exam Appears: Non-toxic, No Acute Distress Skin: Normal Color, Warm Head: Atraumatic, Normacephalic Eye(s): bilateral: Normal Inspection, PERRL, EOMI Nose: Normal Oral Mucosa: Moist Neck: Supple Cardiovascular: Rhythm Regular Respiratory: Normal Breath Sounds Extremity: Normal ROM, No Deformity Neurological/Psych: Oriented x3, Normal Speech, Normal Cognition ED Course And Treatment O2 Sat by Pulse Oximetry: 99 (RA) Pulse Ox Interpretation: Normal Disposition - Disposition Disposition Time: 19:00 Condition: UNKNOWN Forms: [facility] (Spanish) - Clinical Impression Clinical Impression: Headache - Scribe Statement The provider has reviewed the documentation as recorded by the Jordi Hong Provider Attestation: All medical record entries made by the Monicaibhector were at my direction and personally dictated by me. I have reviewed the chart and agree that the record accurately reflects my personal performance of the history, physical exam, medical decision making, and the department course for this patient. I have also personally directed, reviewed, and agree with the discharge instructions and disposition.
--- NOTE | 2017-03-28 20:59 | CT ---
EXAM: CT Head Without Intravenous Contrast EXAM DATE/TIME: 03/28/2017 5:34 PM CLINICAL HISTORY: 66 years old, female; Condition or disease; Headache; Headache not specified; Additional info: Headache h/o recent subdural TECHNIQUE: Axial computed tomography images of the head/brain without intravenous contrast. All CT scans at this facility use one or more dose reduction techniques, viz.: automated exposure control; ma/kV adjustment per patient size (including targeted exams where dose is matched to indication; i.e. head); or iterative reconstruction technique. Coronal and sagittal reformatted images were created and reviewed. COMPARISON: Prior head CT of 2017-02-28 FINDINGS: LIMITATIONS: Mild streak/motion artifact. BRAIN: Small amount of hyperdensity seen along the posterior falx on the right, suspicious for a small amount of acute subdural hemorrhage. Findings are best seen on image [id number] of series 4. Compared to the prior head CT, there has been resolution of the previously seen small to moderate right parafalcine acute subdural hematoma. Focal area of low density in the left basal ganglia, most compatible with an old/chronic lacunar infarct. Areas of hypodensity in the white matter bilaterally, nonspecific in appearance, but most likely representing chronic small vessel ischemic changes, in a patient of this age. Diffuse, age-related cortical atrophy and ventriculomegaly. No other significant abnormality identified. No additional areas of acute hemorrhage are visualized. No evidence of midline shift, ventricular effacement, basilar cistern effacement, or other significant intracranial mass effect. VENTRICLES: See above. BONES/JOINTS: No acute fractures or other acute bony abnormality noted. SOFT TISSUES: Mild soft tissue swelling in the right frontal scalp, decreased compared to the prior study. SINUSES: Visualized paranasal sinuses appear clear. MASTOID AIR CELLS: Mastoid air cells appear clear. IMPRESSION: - Findings suspicious for a small acute posterior parafalcine subdural hematoma. - Resolution of the previously visualized larger acute parafalcine subdural hematoma, seen on a head CT of 02/28/2017. - See above for remaining findings.
[2017-03-28 21:52] LABS: BASO # 0.1 K/uL (0.0-0.2); BASO % 0.9 % (0.0-2.0); EOS # 0.2 K/uL (0.0-0.7); EOS % 2.1 % (0.0-4.0); HEMATOCRIT 35.7 % (34.0-47.0); LYMPH # 2.5 K/uL (1.0-4.3); LYMPH % 27.7 % (20.0-40.0); MEAN CELL VOLUME 82.7 fL (81.0-99.0); MEAN CORPUSCULAR HEMOGLOBIN 27.6 pg (27.0-31.0); MEAN CORPUSCULAR HGB CONC 33.3 g/dL (33.0-37.0); MEAN PLATELET VOLUME 10.1 fL (7.2-11.7); MONO # 0.7 K/uL (0.0-0.8); MONO % 7.9 % (0.0-10.0); NRBC % 0.1 % (0.0-2.0); RED CELL DISTRIBUTION WIDTH 13.6 % (11.5-14.5)
[2017-03-28 22:21] LABS: ALB/GLOB RATIO 1.2 (1.0-2.1); ALKALINE PHOSPHATASE 85 U/L (38-126); ALT/SGPT 32 U/L (9-52); AST/SGOT 21 U/L (14-36); BILIRUBIN,TOTAL 0.4 mg/dL (0.2-1.3); BLOOD UREA NITROGEN 8 mg/dL (7-17); CALCIUM 8.5 mg/dl (8.6-10.4); CARBON DIOXIDE 27 mmol/L (22-30); CHLORIDE 104 mmol/L (98-107); GFR AFRICAN-AMERICAN > 60; GLUCOSE,RANDOM 126 mg/dL (65-105); POTASSIUM 3.7 mmol/L (3.6-5.2); SODIUM 140 mmol/L (132-148); TOTAL PROTEIN 7.6 g/dL (6.3-8.3)
--- NOTE | 2017-03-29 01:45 | CP.PCM.HP ---
<Franklyn Morales - Last Filed: 03/29/17 01:40> History of Present Illness - History of Present Illness History of Present Illness: Medicine H/P CC: Headache HPI: Patient is 66F with a PMH of HTN and a Subdural hematome 1 month ago after a fall presents to the ED with a headache that she woke up with. Nothing makes the pain better or worse. She describes the pain as throbbing. It does not radiated anywhere. It Has been constant since it began. Last time she was here 1 month ago she was seen by Neurosurgery that stated there was no intervention needed. The current CT shows resolution of the prior hematoma and an acute small hematoma. Neurosurgery was reached out to and said to repeat the CT and they will see the patient in the office. ROS: Per hpi PMH: HTN, Subdural hematoma PSH: None FH: unremarkable SH: denies smoking, drinking, drugs Meds: see MAR All: None Present on Admission - Present on Admission Any Indicators Present on Admission: No Review of Systems - Review of Systems Review of Systems: per hpi Past Patient History - Infectious Disease Hx of Infectious Diseases: None - Tetanus Immunizations Tetanus Immunization: Unknown - Past Medical History & Family History Past Medical History?: Yes - Past Social History Smoking Status: Never Smoked - CARDIAC Hx Hypertension: Yes - PULMONARY Hx Respiratory Disorders: No - NEUROLOGICAL Hx Neurological Disorder: No - HEENT Hx HEENT Problems: Yes Other/Comment: uses glasses for reading - RENAL Hx Chronic Kidney Disease: No - ENDOCRINE/METABOLIC Hx Endocrine Disorders: No - HEMATOLOGICAL/ONCOLOGICAL Hx Blood Disorders: No - MUSCULOSKELETAL/RHEUMATOLOGICAL Hx Musculoskeletal Disorders: No Hx Falls: No - GASTROINTESTINAL Hx Gastrointestinal Disorders: No - GENITOURINARY/GYNECOLOGICAL Hx Genitourinary Disorders: No - PSYCHIATRIC Hx Substance Use: No - SURGICAL HISTORY Hx Surgeries: No - ANESTHESIA Hx Anesthesia: No Meds Allergies/Adverse Reactions: Allergies Allergy/AdvReac Type Severity Reaction Status Date / Time No Known Allergies Allergy Verified 03/28/17 16:37 Physical Exam - Constitutional Appears: Well, Non-toxic, No Acute Distress - Head Exam Additional comments: healing scar over R lateral forehead measuring approx. 10cm - Eye Exam Eye Exam: EOMI, Normal appearance, PERRL. absent: Conjunctival injection, Nystagmus, Periorbital swelling, Periorbital tenderness, Scleral icterus Pupil Exam: NORMAL ACCOMODATION, PERRL. absent: Fixed, Irregular, Miosis, Mydriatic, Unequal - ENT Exam ENT Exam: Mucous Membranes Moist - Respiratory Exam Respiratory Exam: Clear to Auscultation Bilateral, NORMAL BREATHING PATTERN - Cardiovascular Exam Cardiovascular Exam: REGULAR RHYTHM - GI/Abdominal Exam GI & Abdominal Exam: Normal Bowel Sounds, Soft. absent: Distended, Tenderness - Extremities Exam Extremities exam: Negative for: joint swelling, tenderness - Neurological Exam Neurological exam: Alert, CN II-XII Intact, Oriented x3 - Expanded Neurological Exam Expanded Neurological exam: Protecting the Airway Patient oriented to: person, place, time Speech: Fluid Speech Cranial nerves: EOM's Intact: Normal, Facial Palsey w/Forehead Movement: Normal , Facial Palsey w/o Forehead Movement: Normal, Facial Sensation: Normal, Nystagmus: Normal Upper motor neuron: Pronator Drift: Normal, Sensory Extinction: Normal Sensory exam: Lower Extremity Light Touch: Normal, Upper Extremity Light Touch: Normal Neuro motor strength exam: Left Upper Extremity: 5, Right Upper Extremity: 5, Left Lower Extremity: 5, Right Lower Extremity: 5 Coma Scale Eye Opening: SPONTANEOUS Coma Scale Motor Response: OBEYS COMMANDS Coma Scale Verbal: Oriented Coma Scale Total: 15 - Psychiatric Exam Psychiatric exam: Normal Affect, Normal Mood - Skin Skin Exam: Dry, Intact, Normal Color, Warm Results - Vital Signs Recent Vital Signs: Last Vital Signs Temp 97.9 F 03/29/17 00:51 Pulse 78 03/29/17 00:51 Resp 16 03/29/17 00:51 BP 112/61 03/29/17 00:51 Pulse Ox 99 03/29/17 00:51 - Labs Result Diagrams: 03/28/17 21:48 03/28/17 21:48 Labs: Laboratory Results - last 24 hr 03/28/17 03/28/17 03/28/17 21:48 21:48 21:48 WBC 9.0 RBC 4.32 Hgb 11.9 Hct 35.7 MCV 82.7 MCH 27.6 MCHC 33.3 RDW 13.6 Plt Count 272 MPV 10.1 Neut % (Auto) 61.4 Lymph % (Auto) 27.7 [place] % (Auto) 7.9 Eos % (Auto) 2.1 Baso % (Auto) 0.9 Neut # 5.5 Lymph # 2.5 [place] # 0.7 Eos # 0.2 Baso # 0.1 PT 11.4 INR 1.0 APTT 30 Sodium 140 Potassium 3.7 Chloride 104 Carbon Dioxide 27 Anion Gap 13 BUN 8 Creatinine 0.5 L Est GFR ( Amer) > 60 Est GFR (Non-Af Amer) > 60 Random Glucose 126 H Calcium 8.5 L Total Bilirubin 0.4 AST 21 ALT 32 Alkaline Phosphatase 85 Total Protein 7.6 Albumin 4.2 Globulin 3.4 Albumin/Globulin Ratio 1.2 Blood Type Antibody Screen 03/28/17 21:48 WBC RBC Hgb Hct MCV MCH MCHC RDW Plt Count MPV Neut % (Auto) Lymph % (Auto) [place] % (Auto) Eos % (Auto) Baso % (Auto) Neut # Lymph # [place] # Eos # Baso # PT INR APTT Sodium Potassium Chloride Carbon Dioxide Anion Gap BUN Creatinine Est GFR ( Amer) Est GFR (Non-Af Amer) Random Glucose Calcium Total Bilirubin AST ALT Alkaline Phosphatase Total Protein Albumin Globulin Albumin/Globulin Ratio Blood Type O POSITIVE Antibody Screen Negative Assessment & Plan (1) Subdural hematoma Assessment and Plan: Neurosurgery (Lily) * F/U in office CT - small acute posterior parafalcine subdural hematoma F/U Repeat CT Status: Acute Priority: Medium (2) HTN (hypertension) Assessment and Plan: Lopressor 50 PO QD Norvasc 5 PO QD Status: Chronic Priority: Medium (3) Prophylactic measure Assessment and Plan: Pepcid 20 PO QD SCD Status: Acute <Jack Bolton - Last Filed: 03/29/17 06:41> Results - Vital Signs Recent Vital Signs: Last Vital Signs Temp 98 F 03/29/17 05:13 Pulse 80 03/29/17 05:13 Resp 18 03/29/17 05:13 BP 176/90 H 03/29/17 05:13 Pulse Ox 99 03/29/17 01:30 - Labs Result Diagrams: 03/28/17 21:48 03/28/17 21:48 Labs: Laboratory Results - last 24 hr 03/28/17 03/28/17 03/28/17 21:48 21:48 21:48 WBC 9.0 RBC 4.32 Hgb 11.9 Hct 35.7 MCV 82.7 MCH 27.6 MCHC 33.3 RDW 13.6 Plt Count 272 MPV 10.1 Neut % (Auto) 61.4 Lymph % (Auto) 27.7 [place] % (Auto) 7.9 Eos % (Auto) 2.1 Baso % (Auto) 0.9 Neut # 5.5 Lymph # 2.5 [place] # 0.7 Eos # 0.2 Baso # 0.1 PT 11.4 INR 1.0 APTT 30 Sodium 140 Potassium 3.7 Chloride 104 Carbon Dioxide 27 Anion Gap 13 BUN 8 Creatinine 0.5 L Est GFR ( Amer) > 60 Est GFR (Non-Af Amer) > 60 Random Glucose 126 H Calcium 8.5 L Total Bilirubin 0.4 AST 21 ALT 32 Alkaline Phosphatase 85 Total Protein 7.6 Albumin 4.2 Globulin 3.4 Albumin/Globulin Ratio 1.2 Blood Type Antibody Screen 03/28/17 21:48 WBC RBC Hgb Hct MCV MCH MCHC RDW Plt Count MPV Neut % (Auto) Lymph % (Auto) [place] % (Auto) Eos % (Auto) Baso % (Auto) Neut # Lymph # [place] # Eos # Baso # PT INR APTT Sodium Potassium Chloride Carbon Dioxide Anion Gap BUN Creatinine Est GFR ( Amer) Est GFR (Non-Af Amer) Random Glucose Calcium Total Bilirubin AST ALT Alkaline Phosphatase Total Protein Albumin Globulin Albumin/Globulin Ratio Blood Type O POSITIVE Antibody Screen Negative Assessment & Plan - Date & Time Date: 03/29/17 (I have seen and examined the patient. I agree with the findings and plan of care as documented by Dr. Morales. Patient with subdural hematoma. Had prior brain hemorrhage, but today hematoma in different area. Repeat CT in AM. Neurosurg called by ED. Continue home meds for history of hypertension. Monitor for acute changes.) Time: 06:40 Attending/Attestation - Attestation I have personally seen and examined this patient.: Yes I have fully participated in the care of the patient.: Yes I have reviewed all pertinent clinical information: Yes
--- NOTE | 2017-03-29 07:23 | CP.PCM.PN ---
Subjective - Date & Time of Evaluation Date of Evaluation: 03/29/17 Time of Evaluation: 07:22 - Subjective Subjective: PGY-[address] Mayberry. No acute events noted overnight. Patient denies chest pain, shortness of breath , abdominal pain, fevers, nausea, vomiting, diarrhea. Objective - Vital Signs/Intake and Output Vital Signs (last 24 hours): Temp Pulse Resp BP Pulse Ox 98 F 80 18 176/90 H 99 03/29/17 05:13 03/29/17 05:13 03/29/17 05:13 03/29/17 05:13 03/29/17 01:30 - Medications Medications: Current Medications Acetaminophen (Tylenol 325mg Tab) 650 mg PO Q6 PRN PRN Reason: Pain, moderate (4-7) Acetaminophen (Tylenol 325mg Tab) 650 mg PO Q6 PRN PRN Reason: Fever >100.4 F Amlodipine Besylate (Norvasc) 5 mg PO DAILY DENA Famotidine (Pepcid) 20 mg PO DAILY DENA Metoprolol Tartrate (Lopressor) 50 mg PO DAILY DENA - Labs Labs: 03/28/17 21:48 03/28/17 21:48 PT 11.4 SECONDS (9.7-12.2) 03/28/17 21:48 INR 1.0 03/28/17 21:48 APTT 30 SECONDS (21-34) 03/28/17 21:48 - Additional Findings Additional findings: - Constitutional Appears: Well, Non-toxic, No Acute Distress - Head Exam Additional comments: healing scar over R lateral forehead measuring approx. 10cm - Eye Exam Eye Exam: EOMI, Normal appearance, PERRL. absent: Conjunctival injection, Nystagmus, Periorbital swelling, Periorbital tenderness, Scleral icterus Pupil Exam: NORMAL ACCOMODATION, PERRL. absent: Fixed, Irregular, Miosis, Mydriatic, Unequal - ENT Exam ENT Exam: Mucous Membranes Moist - Respiratory Exam Respiratory Exam: Clear to Auscultation Bilateral, NORMAL BREATHING PATTERN - Cardiovascular Exam Cardiovascular Exam: REGULAR RHYTHM - GI/Abdominal Exam GI & Abdominal Exam: Normal Bowel Sounds, Soft. absent: Distended, Tenderness - Extremities Exam Extremities exam: Negative for: joint swelling, tenderness - Neurological Exam Neurological exam: Alert, CN II-XII Intact, Oriented x3 - Expanded Neurological Exam Expanded Neurological exam: Protecting the Airway Patient oriented to: person, place, time Speech: Fluid Speech Cranial nerves: EOM's Intact: Normal, Facial Palsey w/Forehead Movement: Normal , Facial Palsey w/o Forehead Movement: Normal, Facial Sensation: Normal, Nystagmus: Normal Upper motor neuron: Pronator Drift: Normal, Sensory Extinction: Normal Sensory exam: Lower Extremity Light Touch: Normal, Upper Extremity Light Touch: Normal Neuro motor strength exam: Left Upper Extremity: 5, Right Upper Extremity: 5, Left Lower Extremity: 5, Right Lower Extremity: 5 Coma Scale Eye Opening: SPONTANEOUS Coma Scale Motor Response: OBEYS COMMANDS Coma Scale Verbal: Oriented Coma Scale Total: 15 - Psychiatric Exam Psychiatric exam: Normal Affect, Normal Mood - Skin Skin Exam: Dry, Intact, Normal Color, Warm Assessment and Plan - Assessment and Plan (Free Text) Assessment: (1) Subdural hematoma Assessment and Plan: Neurosurgery consult, Dr Bautista * F/U in office Head CT w/o contrast 03/29: Findings suspicious for a small acute posterior parafalcine subdural hematoma. Resolution of the previously visualized larger acute parafalcine subdural hematoma, seen on a head CT of 02/28/2017. F/U Repeat head CT Status: Acute Priority: Medium (2) HTN (hypertension) Assessment and Plan: con't home med Lopressor 50mg PO QD con't michael med Norvasc 5mg PO QD Status: Chronic Priority: Medium (3) Prophylactic measure Assessment and Plan: Pepcid 20 PO QD SCD Status: Acute
[2017-03-29 08:35] LABS: BASO # 0.1 K/uL (0.0-0.2); BASO % 0.6 % (0.0-2.0); EOS # 0.3 K/uL (0.0-0.7); EOS % 2.9 % (0.0-4.0); HEMATOCRIT 37.7 % (34.0-47.0); LYMPH # 2.1 K/uL (1.0-4.3); LYMPH % 22.7 % (20.0-40.0); MEAN CELL VOLUME 83.8 fL (81.0-99.0); MEAN CORPUSCULAR HEMOGLOBIN 27.6 pg (27.0-31.0); MEAN PLATELET VOLUME 10.8 fL (7.2-11.7); MONO # 0.6 K/uL (0.0-0.8); MONO % 6.3 % (0.0-10.0); RED CELL DISTRIBUTION WIDTH 13.8 % (11.5-14.5); WHITE BLOOD COUNT 9.4 K/uL (4.8-10.8)
[2017-03-29 09:04] LABS: ALB/GLOB RATIO 0.9 (1.0-2.1); ALKALINE PHOSPHATASE 101 U/L (38-126); ALT/SGPT 32 U/L (9-52); AST/SGOT 25 U/L (14-36); BILIRUBIN,TOTAL 0.5 mg/dL (0.2-1.3); BLOOD UREA NITROGEN 6 mg/dL (7-17); CALCIUM 8.9 mg/dl (8.6-10.4); CARBON DIOXIDE 26 mmol/L (22-30); CHLORIDE 98 mmol/L (98-107); GFR AFRICAN-AMERICAN > 60; GLUCOSE,RANDOM 98 mg/dL (65-105); POTASSIUM 3.4 mmol/L (3.6-5.2); SODIUM 135 mmol/L (132-148); TOTAL PROTEIN 9.5 g/dL (6.3-8.3)
[2017-03-29] MEDS ORDERED: Potassium Chloride 20 mEq ER Tab PO ONE (12:39)
--- NOTE | 2017-03-29 15:39 | CT ---
PROCEDURE: CT HEAD WITHOUT CONTRAST. HISTORY: f/u subdural hematoma COMPARISON: Unenhanced head CT 03/28/2017. TECHNIQUE: Axial computed tomography images were obtained through the head/brain without intravenous contrast. Radiation dose: Total exam DLP = 1066.11 mGy-cm. This CT exam was performed using one or more of the following dose reduction techniques: Automated exposure control, adjustment of the mA and/or kV according to patient size, and/or use of iterative reconstruction technique. FINDINGS: HEMORRHAGE: Trace subdural again suggested at the right side of posterior falx without interval change. BRAIN: Good corticomedullary differentiation is seen. Reiterated diffuse cerebral atrophy and chronic microangiopathy. No suspicious interval extra-axial fluid collection is identified and the midline brain anatomy appears grossly nonfocal as imaged. VENTRICLES: Unremarkable. No hydrocephalus. CALVARIUM: Unremarkable. PARANASAL SINUSES: Unremarkable as visualized. No significant inflammatory changes. MASTOID AIR CELLS: Unremarkable as visualized. No inflammatory changes. OTHER FINDINGS: None. IMPRESSION: Trace right parafalcine subdural hematoma unchanged grossly. Otherwise, Reiterated age related neuro degenerative changes are identified without additional acute intracranial findings as discussed above. Follow up CT or MRI are available if clinically warranted.
--- NOTE | 2017-03-29 17:02 | CP.PCM.DIS ---
Provider - Provider Date of Admission: 03/28/17 23:15 Attending physician: Jack Bolton MD Primary care physician: Dr Meehan ([facility]) Consults: Neurosurgery: Dr Ulises Bautista Time Spent in preparation of Discharge (in minutes): 42 Hospital Course - Lab Results Lab Results: Most Recent Lab Values WBC 9.4 K/uL (4.8-10.8) 03/29/17 08:17 RBC 4.50 Mil/uL (3.80-5.20) 03/29/17 08:17 Hgb 12.4 g/dL (11.0-16.0) 03/29/17 08:17 Hct 37.7 % (34.0-47.0) 03/29/17 08:17 MCV 83.8 fL (81.0-99.0) 03/29/17 08:17 MCH 27.6 pg (27.0-31.0) 03/29/17 08:17 MCHC 33.0 g/dL (33.0-37.0) 03/29/17 08:17 RDW 13.8 % (11.5-14.5) 03/29/17 08:17 Plt Count 292 K/uL (130-400) 03/29/17 08:17 MPV 10.8 fL (7.2-11.7) 03/29/17 08:17 Neut % (Auto) 67.5 % (50.0-75.0) 03/29/17 08:17 Lymph % (Auto) 22.7 % (20.0-40.0) 03/29/17 08:17 [place] % (Auto) 6.3 % (0.0-10.0) 03/29/17 08:17 Eos % (Auto) 2.9 % (0.0-4.0) 03/29/17 08:17 Baso % (Auto) 0.6 % (0.0-2.0) 03/29/17 08:17 Neut # 6.3 K/uL (1.8-7.0) 03/29/17 08:17 Lymph # 2.1 K/uL (1.0-4.3) 03/29/17 08:17 [place] # 0.6 K/uL (0.0-0.8) 03/29/17 08:17 Eos # 0.3 K/uL (0.0-0.7) 03/29/17 08:17 Baso # 0.1 K/uL (0.0-0.2) 03/29/17 08:17 PT 11.4 SECONDS (9.7-12.2) 03/28/17 21:48 INR 1.0 03/28/17 21:48 APTT 30 SECONDS (21-34) 03/28/17 21:48 Sodium 135 mmol/L (132-148) 03/29/17 08:16 Potassium 3.4 mmol/L (3.6-5.2) L 03/29/17 08:16 Chloride 98 mmol/L (98-107) 03/29/17 08:16 Carbon Dioxide 26 mmol/L (22-30) 03/29/17 08:16 Anion Gap 14 (10-20) 03/29/17 08:16 BUN 6 mg/dL (7-17) L 03/29/17 08:16 Creatinine 0.5 mg/dL (0.7-1.2) L 03/29/17 08:16 Est GFR ( Amer) > 60 03/29/17 08:16 Est GFR (Non-Af Amer) > 60 03/29/17 08:16 Random Glucose 98 mg/dL (65-105) 03/29/17 08:16 Calcium 8.9 mg/dl (8.6-10.4) 03/29/17 08:16 Total Bilirubin 0.5 mg/dL (0.2-1.3) 03/29/17 08:16 AST 25 U/L (14-36) 03/29/17 08:16 ALT 32 U/L (9-52) 03/29/17 08:16 Alkaline Phosphatase 101 U/L (38-126) 03/29/17 08:16 Total Protein 9.5 g/dL (6.3-8.3) H 03/29/17 08:16 Albumin 4.4 g/dL (3.5-5.0) 03/29/17 08:16 Globulin 5.0 gm/dL (2.2-3.9) H 03/29/17 08:16 Albumin/Globulin Ratio 0.9 (1.0-2.1) L 03/29/17 08:16 Blood Type O POSITIVE 03/28/17 21:48 Antibody Screen Negative 03/28/17 21:48 - Hospital Course Hospital Course: Medicine H/P CC: Headache HPI: Patient is 66F with a PMH of HTN and a Subdural hematome 1 month ago after a fall presents to the ED with a headache that she woke up with. Nothing makes the pain better or worse. She describes the pain as throbbing. It does not radiated anywhere. It Has been constant since it began. Last time she was here 1 month ago she was seen by Neurosurgery that stated there was no intervention needed. The current CT shows resolution of the prior hematoma and an acute small hematoma. Neurosurgery was reached out to and said to repeat the CT and they will see the patient in the office. ROS: Per hpi PMH: HTN, Subdural hematoma PSH: None FH: unremarkable SH: denies smoking, drinking, drugs Meds: see MAR All: None HOSPITAL COURSE: A CT head w/o contrast was performed with the following results: "Findings suspicious for a small acute posterior parafalcine subdural hematoma. Resolution of the previously visualized larger acute parafalcine subdural hematoma, seen on a head CT of 02/28/2017". This finding confirmed that this was a separate NEW subdural hematoma, in comparison to the subdural hematoma which occurred 1 month ago s/p fall. A repeat CT head w/o contrast was performed with the following results: "Trace right parafalcine subdural hematoma unchanged grossly". Dr Orr, neurosurgery, was consulted and after reviewing her case and imaging, advised that the patient follow-up with him outpatient. The patient was not symptomatic during her stay. She denied headaches or visual changes or discharge from her previous laceration site. To treat her hypertension, Lopressor and Norvasc was continued. Her BP was elevated during this stay, thus her norvasc was increased from 5mg to 10mg (a script was given to her at discharge). Discharge Exam - Additional Findings Additional findings: - Constitutional Appears: Well, Non-toxic, No Acute Distress - Head Exam Additional comments: healing scar over R lateral forehead measuring approx. 10cm - Eye Exam Eye Exam: EOMI, Normal appearance, PERRL. absent: Conjunctival injection, Nystagmus, Periorbital swelling, Periorbital tenderness, Scleral icterus Pupil Exam: NORMAL ACCOMODATION, PERRL. absent: Fixed, Irregular, Miosis, Mydriatic, Unequal - ENT Exam ENT Exam: Mucous Membranes Moist - Respiratory Exam Respiratory Exam: Clear to Auscultation Bilateral, NORMAL BREATHING PATTERN - Cardiovascular Exam Cardiovascular Exam: REGULAR RHYTHM - GI/Abdominal Exam GI & Abdominal Exam: Normal Bowel Sounds, Soft. absent: Distended, Tenderness - Extremities Exam Extremities exam: Negative for: joint swelling, tenderness - Neurological Exam Neurological exam: Alert, CN II-XII Intact, Oriented x3 - Expanded Neurological Exam Expanded Neurological exam: Protecting the Airway Patient oriented to: person, place, time Speech: Fluid Speech Cranial nerves: EOM's Intact: Normal, Facial Palsey w/Forehead Movement: Normal , Facial Palsey w/o Forehead Movement: Normal, Facial Sensation: Normal, Nystagmus: Normal Upper motor neuron: Pronator Drift: Normal, Sensory Extinction: Normal Sensory exam: Lower Extremity Light Touch: Normal, Upper Extremity Light Touch: Normal Neuro motor strength exam: Left Upper Extremity: 5, Right Upper Extremity: 5, Left Lower Extremity: 5, Right Lower Extremity: 5 Coma Scale Eye Opening: SPONTANEOUS Coma Scale Motor Response: OBEYS COMMANDS Coma Scale Verbal: Oriented Coma Scale Total: 15 - Psychiatric Exam Psychiatric exam: Normal Affect, Normal Mood - Skin Skin Exam: Dry, Intact, Normal Color, Warm Discharge Plan - Discharge Medications Prescriptions: amLODIPine [Norvasc] 10 mg PO DAILY 30 Days #30 tab - Follow Up Plan Condition: FAIR Disposition: HOME/ ROUTINE Additional Instructions: Patient is medically stable for discharge. Patient will be given a script for the following medications to be taken as prescribed: Norvasc 10mg PO QD Patient is to resume her other home medications. Patient has an appointment in [facility] in April that she should attend. Patient should make an appointment and follow-up with Dr Ulises Bautista within 1 week (he is aware patient is [facility]). Dr Ulises Bautista Address: [address] [place] [address] If symptoms return or worsen, please return to ER.
--- NOTE | 2017-03-29 18:23 | CARD ---
APPROVED REPORT EKG Measurement Heart [id number] <Conclusion> Sinus tachycardia Lateral infarct, age undetermined Marked ST abnormality, possible septal subendocardial injury Abnormal ECG
[2017-03-30 19:50] VITALS: BP 149/99; PULSE 100; RESP 18; TEMP 99.7; O2SAT 96
== END 2017-03-29 17:26 | disposition left against medical advice (07) ==
LOC: C.ER 16:08 → C.9E 23:15 → C.6T 03-29 00:26
PROVIDERS: ADMIT Family Medicine; ATTEND Family Medicine
DX: I10 Essential (primary) hypertension (principal); R51 Headache
CPT/HCPCS: 36415; 70450; 80053; 85025; 85610; 85730; 86850; 86900; 93005; G0378

== ENCOUNTER 2017-04-29 10:08 | Emergency (ER) | payer OTHER ==
[2017-04-29 10:19] VITALS: BMI 27.4
[2017-04-29 10:22] VITALS: O2SAT 100
[2017-04-29 11:16] VITALS: PULSE 95; RESP 16
[2017-04-29 11:25] VITALS: BP 198/90
--- NOTE | 2017-04-29 11:28 | C.PDOC ---
History Of Present Illness 67-YEAR-OLD FEMALE, IS REFERRED FROM CLINIC FOR ABNORMAL EKG. PS WENT FOR FU SINCE DC FROM HOSPITAL 03/2017. NO NEW SX "I FEEL FINE". REQUESTING MED REFILL, LAST DOSE 2 DAYS EXAM NEG [facility]DM OLD RECORDS REVIEWED EKG UNCH FROM PRIOR. NSR ON MONITOR CONTRARY TO REFERRAL BY CLINIC. PT DOESNT WANT ADMISSION AND WISHES DC HOME Time Seen by Provider: 04/29/17 10:23 Chief Complaint (Nursing): High Blood Pressure History Per: Patient History/Exam Limitations: no limitations Past Medical History Reviewed: Historical Data, Nursing Documentation, Vital Signs Vital Signs: Last Vital Signs Temp 98.7 F 04/29/17 11:15 Pulse 95 H 04/29/17 11:15 Resp 16 04/29/17 11:15 BP 184/85 H 04/29/17 11:15 Pulse Ox 100 04/29/17 11:29 - Medical History PMH: HTN - [facility] Procedures REPAIR SCALP SKIN, EXTERNAL APPROACH (02/27/17) Family History: States: No Known Family Hx - Social History Hx Alcohol Use: No Hx Substance Use: No - Immunization History Hx Tetanus Toxoid Vaccination: No Hx Influenza Vaccination: No Hx Pneumococcal Vaccination: No Review Of Systems Except As Marked, All Systems Reviewed And Found Negative. Constitutional: Negative for: Fever, Chills Cardiovascular: Negative for: Chest Pain, Palpitations Respiratory: Negative for: Shortness of Breath Gastrointestinal: Negative for: Nausea, Vomiting Musculoskeletal: Negative for: Back Pain Neurological: Negative for: Weakness, Numbness, Headache, Dizziness Physical Exam - Physical Exam Appears: Non-toxic, No Acute Distress Skin: Warm, Dry, No Rash Head: Atraumatic Eye(s): bilateral: Normal Inspection, PERRL Nose: Normal Oral Mucosa: Moist Lips: Normal Appearing Neck: Normal ROM Chest: Symmetrical Cardiovascular: Rhythm Regular, No Murmur Respiratory: Normal Breath Sounds, No Accessory Muscle Use Extremity: Normal ROM Neurological/Psych: Oriented x3, Normal Speech ED Course And Treatment O2 Sat by Pulse Oximetry: 100 Disposition Counseled Patient/Family Regarding: Diagnosis, Need For Followup, Rx Given - Disposition Referrals: [facility] [Outside] [facility] [Outside] Disposition: HOME/ ROUTINE Disposition Time: 11:26 Condition: GOOD Prescriptions: amLODIPine [Norvasc] 10 mg PO DAILY #7 tab Instructions: Medicine Refill (ED) Forms: [employer] (Dominican) - Clinical Impression Clinical Impression: Encounter for medical assessment, Medication refill - Scribe Statement The provider has reviewed the documentation as recorded by the Scribe (Lana Judd) All medical record entries made by the Scribe were at my direction and personally dictated by me. I have reviewed the chart and agree that the record accurately reflects my personal performance of the history, physical exam, medical decision making, and the department course for this patient. I have also personally directed, reviewed, and agree with the discharge instructions and disposition.
[2017-04-29 11:39] VITALS: TEMP 98.7
--- NOTE | 2017-04-30 23:41 | CARD ---
APPROVED REPORT EKG Measurement Heart [id number] <Conclusion> Sinus tachycardia with premature supraventricular complexes Lateral infarct, age undetermined Abnormal ECG
== END 2017-04-29 11:38 | disposition home or self-care (01) ==
LOC: C.ER 10:08
DX: Z02.89 Encounter for other administrative examinations (principal); Z76.0 Encounter for issue of repeat prescription